=== PATIENT | male | born 2000 | race African-American/Black ===

== ENCOUNTER 2024-11-20 22:25 | Emergency (ER) | payer OTHER ==
[~2024-11-20] VITALS: Ht 162.6 cm; Wt 70.9 kg
[2024-11-20] MEDS ORDERED: Tdap Vaccine 0.5 ML SYRINGE IM ONE (23:15)
[2024-11-20] MEDS ORDERED: Tetanus,Diphther Toxoid Adult 0.5 ML SYRINGE IM ONE (23:15)
[2024-11-20 23:16] VITALS: BP 118/64
== END 2024-11-20 23:21 | disposition home or self-care (01) ==
LOC: ED 22:25
DX: S29.9XXA Unspecified injury of thorax, initial encounter (principal); F17.290 Nicotine dependence, other tobacco product, uncomplicated; Z23 Encounter for immunization; W46.0XXA Contact with hypodermic needle, initial encounter; Y93.89 Activity, other specified; Y99.0 Civilian activity done for income or pay
CPT/HCPCS: 90715